=== PATIENT | male | born 2000 | race Caucasian/White ===

== ENCOUNTER → 2020-12-03 | Day surgery (SDC) | payer BC ==
[~2020-12-03] VITALS: Ht 180.3 cm; Wt 90.7 kg
[~2020-12-03] MED LIST: ESCITALOPRAM OX10 MG PO; HYDROmorphone 2 MG/ML VIAL IVP PRN; IV RINGERS,LACTATED 1000ML 1,000 ML IV SCH; LIDOCAINE 2% PF 5 ML VIAL. ONE; MORPHINE SULFATE 2 MG/ML INJ. IVP PRN; PANT40TA77 PO; PROCHLORPERAZINE 10 MG/2 ML VIAL. IVP PRN; PROPOFOL 10 MG/ML (20ML) VIAL. IV ONE; fentaNYL PF VIAL 100 MCG/2 ML VIAL IVP PRN
[2020-12-03 11:17] VITALS: BP 121/60
--- NOTE | 2020-12-03 11:45 | PREOP HP ---
DATE OF SERVICE: 12/03/2020 DATE OF PROCEDURE: 12/03/2020 REQUESTING PHYSICIAN: Elijah Torres DO PRIMARY CARE PHYSICIAN: Elijah Torres DO REASON FOR PROCEDURE: Abdominal pain, nausea and vomiting. HISTORY OF PRESENT ILLNESS: This is a 20-year-old gentleman who presents with nausea, vomiting, abdominal pain. ALLERGIES: No known drug allergies. PAST MEDICAL HISTORY: Reflux. FAMILY MEDICAL HISTORY: Hypertension. SOCIAL HISTORY: Occasional alcohol. No tobacco. MEDICATIONS: MAR reviewed. REVIEW OF SYSTEMS: A 13-point review of systems was done, it is positive as per HPI, otherwise negative. PHYSICAL EXAMINATION: VITAL SIGNS: He is afebrile and vital signs are stable. GENERAL: He is a well-developed, well-nourished male in no apparent distress. HEENT: Oropharynx is clear. CARDIOVASCULAR: S1, S2. LUNGS: Clear. ABDOMEN: Normoactive bowel sounds, soft, nontender, nondistended. EXTREMITIES: No edema. NEUROLOGIC: Awake, alert, oriented x 3. ASSESSMENT AND PLAN: Nausea and vomiting. The risks and benefits of the upper endoscopy including bleeding, perforation, nondiagnosis and sedation were explained and he agreed to proceed. Thank you for allowing me to participate in the care of this patient. GERALDINE DR: Shane TID: [id number]
[2020-12-03 12:20] VITALS: BP 118/76
--- NOTE | 2020-12-04 18:11 | PATHOLOGY ---
[facility] Accession Number: [id number] . 01 Material submitted: . PART A: small bowel - SMALL BOWEL BIOPSY PART B: stomach - GASTRIC ANTRUM AND BODY BIOPSY PART C: esophagus - DISTAL ESOPHAGUS BIOPSY. Modifiers: distal . 01 Clinical history: . ABDOMINAL PAIN EGD . 02 Diagnosis: A. Small bowel biopsy: - No significant pathologic abnormalities. . B. Gastric biopsies, gastric antrum and gastric body: - Chronic gastritis, mild. . C. Esophageal biopsies, distal esophagus: - Reflux esophagitis. . (LINNEAM:ellen; 12/04/2020) [facility] 12/04/2020 1334 Local . 02 Comment: Sections of the small bowel biopsy reveal segments of duodenal and small intestine mucosa. Where best oriented, mucosal villi show no sprue-like changes or significant inflammatory changes. . Sections of the gastric biopsy reveal segments of gastric body and antral/body transition mucosa. The gastric body mucosa shows superficial congestion and focal slight chronic inflammation. The gastric antral/body transition mucosa shows congestion and mild chronic inflammation. A properly controlled immunoperoxidase stain for Helicobacter is negative for Helicobacter organisms. . Sections of the distal esophageal biopsy reveal segments of esophagogastric and gastric mucosa showing focally active mild to moderate chronic inflammation. The squamous esophageal mucosa is hyperplastic and contains a few intraepithelial eosinophils. The findings are consistent with reflux esophagitis. There is no evidence of Hutchins's change, dysplasia, or malignancy. . (MARYBETH:ellen; 12/04/2020) . . Special stain performed: Immunoperoxidase stain for Helicobacter on B1 . Electronically signed: . Lj Cohen MD, Pathologist NPI- [id number] . 01 Gross description: . A. The specimen is submitted in formalin, labeled "Juno Johnson, small bowel biopsy". Received are 3 segments of pale faria tissue ranging in size from 0.3 to 0.4 cm in maximum dimensions. The specimen is submitted entirely in cassette A1. . B. The specimen is submitted in formalin, labeled "Alex, Juno, gastric antrum and body biopsy". Received are 3 segments of pale faria tissue ranging in size from 0.3 to 0.5 cm in maximum dimensions. The specimen is submitted entirely in cassette B1. . C. The specimen is submitted in formalin, labeled "Alex, Juno, distal esophagus biopsy". Received are 3 segments of pale faria tissue ranging in size from 0.3 to 0.4 cm in maximum dimensions. The specimen is submitted entirely in cassette C1. ([facility]; 12/03/2020) NRI/NRI 12/03/[address] [place] [address] . 02 Pathologist provided ICD-10: K29.50, K21.00, R10.9 . 02 CPT . 666151, 133670, 833532, [id number] Specimen Comment: A courtesy copy of this report has been sent to [phone], [phone] Specimen Comment: [id number] Specimen Comment: Report sent to / DR MURCIA Performed at: 01 [facility] [address], [place], [place] [id number] MD Wilver Guadalupe MD Phone: [phone] Performed at: 02 [facility] [address] [place], [place] [id number] MD Lj Cohen MD Phone: [phone]
== END | disposition home or self-care (01) ==
LOC: SURG 10:39
PROVIDERS: ATTEND Internal Medicine Gastroenterology
DX: R10.9 Unspecified abdominal pain (principal); R11.2 Nausea with vomiting, unspecified; K21.00 Gastro-esophageal reflux disease with esophagitis, without bleeding; K44.9 Diaphragmatic hernia without obstruction or gangrene; K29.50 Unspecified chronic gastritis without bleeding; K31.89 Other diseases of stomach and duodenum; F32.9 Major depressive disorder, single episode, unspecified; Z79.899 Other long term (current) drug therapy; Z98.890 Other specified postprocedural states; Z88.8 Allergy status to other drugs, medicaments and biological substances
CPT/HCPCS: 43239; J2704